=== PATIENT | female | born 1985 | race Caucasian/White ===

== ENCOUNTER → 2019-07-07 15:22 | Outpatient (CLI) | payer MEDICAID, SELFPAY ==
[2019-07-07 17:09] LABS: BUN 14 mg/dL (7-18); Creatinine, Serum 0.96 mg/dL (0.55-1.02); EST Glomerular Filtration Rate 71 mL/min (>60); Est Glom Filt Rate - Afr Amer 85 mL/min (>60); Thyroid Stim Hormone (TSH) 0.65 uIU/mL (0.358-3.74)
== END ==
DX: F31.63 Bipolar disorder, current episode mixed, severe, without psychotic features (principal); F60.3 Borderline personality disorder
CPT/HCPCS: 36415; 80178; 82565; 84443; 84520

== ENCOUNTER → 2019-07-24 08:08 | Outpatient (CLI) | payer MEDICAID, SELFPAY | DX: F31.63 Bipolar disorder, current episode mixed, severe, without psychotic features (principal); F60.3 Borderline personality disorder | CPT/HCPCS: 36415; 80178 ==

== ENCOUNTER 2022-03-03 09:23 | Emergency (ER) | payer MEDICAID, SELFPAY ==
[2022-03-03 09:24] VITALS: BP 118/88; PULSE 99; RESP 14; TEMP 36.7; O2SAT 97; BMI 23.5
--- NOTE | 2022-03-03 10:18 | ED.VIS.GI ---
HPI HPI - GI History of Present Illness Chief Complaint: Abd Pain Informant: patient Associated Symptoms LMP: 1 week ago and normal. Narrative Narrative: Patient presents with lower abdominal discomfort. It started about 5 days ago. Its not really pelvic pain. Sure. It started 2 or 3 days before this and stopped. It was normal timing and behavior. She states she has had some discomfort in the lower abdomen that goes a little bit to both sides. It cramps at times and other times is better. Occasionally she feels mildly nauseated but has never vomited. She is still able to eat and drink. She also feels lethargy and just decreased energy. She has had slight myalgia and headache. No fever. She had a soft bowel movement today but has not been having diarrhea. No blood in the stool. Nothing abnormal that she can think of that she ate. She generally is very healthy. She has no prior abdominal surgeries. No history of diverticulitis or ovarian cyst. Nothing consistently makes this better or worse. PFSH PFSH Medical History no medical history Home Medications dicyclomine 20 mg PO TID PRN #14 tab 03/03/22 [Rx Last Taken Unknown] Allergy/AdvReac Type Severity Reaction Status Date / Time codeine AdvReac Other Verified 03/03/22 09:24 Social History Smoking Status: Former smoker ROS ROS ED Constitutional Constitutional ED: Denies chills or fever(s) ENT ENT ED: Denies rhinorrhea or sore throat Cardiovascular Cardiovascular: Denies chest pain Respiratory/Chest Respiratory/Chest: Denies cough or dyspnea Gastrointestinal Gastrointestinal: Reports abdominal pain, diarrhea and nausea; Denies constipation, melena or vomiting Genitourinary Genitourinary ED: Denies dysuria or hematuria Musculoskeletal Musculoskeletal: Reports myalgias Integumentary Denies rash Neurologic Neurologic: Reports headache(s); Denies paresthesias or weakness Endocrine Endocrinology: Denies polyuria Hematologic/Lymphatic Hematologic/Lymphatic: Denies easy bleeding or easy bruising Allergic/Immunologic Allergic/Immunologic ED: Denies urticaria EXAM Physical Exam Const Vital Signs: 03/03/22 09:24 Temperature 98.1 F Temperature Source Temporal Pulse Rate 99 Respiratory Rate 14 Blood Pressure 118/88 H Blood Pressure Mean 98 Pulse Ox 97 Oxygen Delivery Method Room Air Positive well nourished and well developed General Appearance ED: well developed and NAD HEENT Reports moist mucous membranes Eyes General Eye ED: Negative for pale conjunctiva or scleral icterus Neck no JVD Resp normal respiratory effort and clear to auscultation bilaterally Cardio regular rate and regular rhythm GI non-tender and non-distended GI Narrative: No notable tenderness. Bowel sounds are normal. Abdomen is not distended. No rebound guarding or mass felt. Palpation: soft Back/Spine no CVA tenderness Extremity full ROM General Extremety ED: Negative for edema General Extremity: Negative for edema Neuro Sensorium / Orientation: alert Psych mental status grossly normal Skin Rashes: no rashes MDM MDM MDM Narrative Medical decision making narrative: We discussed options. Patient's overall exam is relatively benign. However, it has been going on for 5 days. This very well could be a viral type illness as she has had some achiness fatigue and headache. But she has no respiratory symptoms. I do not think a CT is needed at this time. She is not really having pelvic pain that would point to ultrasound or further exam. We will do some blood work. I will also try some Bentyl. 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 She cannot stay longer. Lab Data Labs: Laboratory Results - last 24 hr 03/03/22 03/03/22 03/03/22 10:22 10:27 10:27 WBC 6.9 RBC 4.61 Hgb 14.5 Hct 43.4 MCV 94.1 MCH 31.5 MCHC 33.4 RDW Std Deviation 43.6 RDW Coeff of Shani 12.6 Plt Count 232 MPV 9.8 Immature Gran % (Auto) 0.100 Neut % (Auto) 68.2 Lymph % (Auto) 22.8 [place] % (Auto) 7.7 Eos % (Auto) 0.6 Baso % (Auto) 0.6 Absolute Neuts (auto) 4.7 Absolute Lymphs (auto) 1.57 Nucleated RBC % 0 Sodium 138 Potassium 4.2 Chloride 107 Carbon Dioxide 25.0 Anion Gap 6 BUN 11 Creatinine 0.65 Estim Creat Clear Calc 106.63 Est GFR (MDRD) Af Amer 131 Est GFR (MDRD) Non-Af 108 BUN/Creatinine Ratio 16.8 Glucose 90 Calcium 8.7 Total Bilirubin 0.40 AST 13 L ALT 20 Alkaline Phosphatase 50 Total Protein 7.2 Albumin 3.8 Globulin 3.4 Albumin/Globulin Ratio 1.1 Serum , Qual Urine Color Straw Urine Clarity Clear Urine pH 6.5 Ur Specific [place] 1.010 Urine Protein Negative Urine Glucose (UA) Normal Urine Ketones Negative Urine Occult Blood Negative Urine Nitrite Negative Urine Bilirubin Negative Urine Urobilinogen Normal Ur Leukocyte Esterase Negative Urine RBC 0 SEEN Urine WBC 0 SEEN Ur Squamous Epith Cells 0-5 SEEN Urine Bacteria 0 SEEN Urine Mucus 0 SEEN 03/03/22 10:27 WBC RBC Hgb Hct MCV MCH MCHC RDW Std Deviation RDW Coeff of Shani Plt Count MPV Immature Gran % (Auto) Neut % (Auto) Lymph % (Auto) [place] % (Auto) Eos % (Auto) Baso % (Auto) Absolute Neuts (auto) Absolute Lymphs (auto) Nucleated RBC % Sodium Potassium Chloride Carbon Dioxide Anion Gap BUN Creatinine Estim Creat Clear Calc Est GFR (MDRD) Af Amer Est GFR (MDRD) Non-Af BUN/Creatinine Ratio Glucose Calcium Total Bilirubin AST ALT Alkaline Phosphatase Total Protein Albumin Globulin Albumin/Globulin Ratio Serum , Qual NEGATIVE Urine Color Urine Clarity Urine pH Ur Specific [place] Urine Protein Urine Glucose (UA) Urine Ketones Urine Occult Blood Urine Nitrite Urine Bilirubin Urine Urobilinogen Ur Leukocyte Esterase Urine RBC Urine WBC Ur Squamous Epith Cells Urine Bacteria Urine Mucus Discharge Plan Triage Chief Complaint: Abd Pain ED Provider: Logan Duffy Dx/Rx/DC Orders Clinical Impression: Abdominal pain Instructions: ED Abdominal Pain Unkn Cause Fem Prescriptions: New dicyclomine 20 mg tablet 20 mg PO TID PRN (Reason: cramps) Qty: 14 RF: 0 Primary Care Provider: Care Physician,No Primary Referrals: Friend,Srinivasan, DO [STAFF PHYSICIAN] - 3-5 Days if not improving Care Physician,No Primary [Primary Care Provider] - Activity Restrictions/Additional Instructions: Follow-up with your family physician in the next day or 2. May also call gastroenterology as above. Disposition Disposition: Home, Self Care
[2022-03-03] MEDS: Dicyclomine 10 MG Capsule 20 MG PO (10:26)
[2022-03-03 10:33] LABS: Bacteria 0 SEEN /hpf (None Seen); Mucous, Urine 0 SEEN /hpf (<or=2+); Red Blood Cells-Urine 0 SEEN /hpf (0-5); White Blood Cells 0 SEEN /hpf (0-5)
[2022-03-03 10:36] LABS: Absolute Lymphocyte Count 1.57 X10^3/uL (0.83-4.51); Absolute Neutrophil Count 4.7 X10^3/uL (2.0-7.7); Basophil# 0.04 X10^3/uL; Basophil% 0.6 % (0-1); Eosinophil# 0.04 X10^3/uL; Eosinophils% 0.6 % (0-5); Hematocrit 43.4 % (37-47); Hemoglobin 14.5 g/dL (12.0-15.0); Lymphocyte # 1.57 X10^3/ul (0.83-4.51); Lymphocyte % 22.8 % (19-41); Mean Corp Hgb Conc 33.4 g/dL (32-36); Mean Corpuscular Hgb 31.5 pg (27.0-32.0); Mean Corpuscular Volume 94.1 fL (81-99); Mean Platelet Vol. 9.8 fl (6.2-12.0); Monocyte# 0.53 X10^3/uL; Monocyte% 7.7 % (0-10); NRBC Flagged by Analyzer 0 % (0-5); Neutrophil % 68.2 % (47-70); Platelet Count 232 K/mm3 (150-450); RBC Distribution Width CV 12.6 % (11.6-14.6); RBC Distribution Width SD 43.6 fl (35.1-43.9); Red Blood Count 4.61 M/mm3 (4.2-5.4); White Blood Count 6.9 K/mm3 (4.4-11.0)
[2022-03-03 10:39] LABS: Color, Urine Straw (Yellow); Glucose, Dipstick Normal (Normal); Ketone-Dipstick Negative (Negative); Leukocyte Esterase-Dipstick Negative /ul (Negative); Nitrite-Dipstick Negative (Negative); Occult Blood-Urine Negative /ul (Negative); Protein-Dipstick Negative (Negative); Urine Bilirubin Dipstick Negative (Negative); Urine Clarity Clear (Clear); Urine Urobilinogen Normal (Normal); Urine pH 6.5 (5.0 - 8.0)
[2022-03-03 10:44] LABS: Internal QC Validated? YES +Cl - CLEAR BKGD; Pregnancy, Serum, hCG Quali. NEGATIVE Negative
[2022-03-03 10:47] LABS: Squamous Epithelial Cells - UA 0-5 SEEN /hpf (5-10)
[2022-03-03 10:54] LABS: ALB/GLOB Ratio 1.1 RATIO (0.9-2.4); AST(SGOT) 13 U/L (15-37); Alanine Aminotransfer ALT/SGPT 20 U/L (13-56); Albumin, Serum 3.8 g/dL (3.2-5.0); Alkaline Phosphatase 50 U/L (45-117); Anion Gap 6 (5-15); BUN 11 mg/dL (7-18); BUN/Creat Ratio 16.8 RATIO (10-20); Calcium,Total 8.7 mg/dL (8.5-10.1); Chloride 107 mmol/L (98-107); Creatinine, Serum 0.65 mg/dL (0.55-1.02); EST Glomerular Filtration Rate 108 mL/min (>60); Est Glom Filt Rate - Afr Amer 131 mL/min (>60); Estimated Creatinine Clearance 106.63 ml/min; Globulin 3.4 g/dL (2.2-4.2); Glucose 90 mg/dL (74-106); Potassium 4.2 mmol/L (3.5-5.1); Protein, Total 7.2 g/dL (6.4-8.2); Sodium Level 138 mmol/L (136-145)
== END 2022-03-03 11:33 | disposition home or self-care (01) ==
PROVIDERS: Emergency Provider Emergency Medicine; Visit Provider Emergency Medicine
DX: R10.9 Unspecified abdominal pain (principal); M79.10 Myalgia, unspecified site; Z87.891 Personal history of nicotine dependence; R51.9 Headache, unspecified
CPT/HCPCS: 80053; 81001; 84703; 85025; 99283; A4216